=== PATIENT | female | born 1955 | race Caucasian/White ===

== ENCOUNTER 2019-03-05 11:37 | Inpatient (IN) ==
[2019-03-05] MEDS ORDERED: DUONEB (A & A) INH ONE ×2 (12:08→20:28)
--- NOTE | 2019-03-05 12:16 | EKG Report ---
Test Performed on : 03/05/2019 11:57:19 AM Test Reason : sob Blood Pressure : / mmHG Vent. Rate : 067 BPM Atrial Rate : 067 BPM P-R Int : 168 ms QRS Dur : 072 ms QT Int : 436 ms P-R-T Axes : 058 020 020 degrees QTc Int : 460 ms Normal sinus rhythm. Low voltage QRS Cannot rule out Anterior infarct , age undetermined Abnormal ECG When compared with ECG of 09-APR-2011 08:06, No significant change was found Unconfirmed Result
--- NOTE | 2019-03-05 12:37 | Diag Imaging Result Doc PS360 ---
EXAM: CHEST-1 VIEW 03/05/2019 HISTORY: sob TECHNIQUE: AP portable at 1211 COMMENT: There is apparent left pleural effusion. There is slightly worsened opacity in the right lateral costophrenic angle and opacification of the lingula with obscuration of left heart border is present. IMPRESSION: Atelectasis versus pneumonia right lower lobe. Pleural effusion on the left with atelectasis versus pneumonia in the lower lobe and lingula. Electronically signed by Oswald Collado 03/05/2019 12:34 PM
[2019-03-05 12:49] LABS: ALLEN TEST YES; BLOOD TYPE ARTERIAL; HCO3-(ACT) 26.5 mmoll (20.0-26.0); METHB 0.9 % (0.0-1.5); O2(CT) 15.7 mL/dL (15.0-23.0); O2HB 95.7 % (95.0-99.0); PCO2(98.6) 34 mmHg (35-45); PO2(98.6) 81 mmHg (60-100); SAMPLE BLOOD; SAO2 98.8 % (95.0-100.0); THB 11.6 g/dL (11.5-17.4); pH(98.6) 7.48 (7.35-7.45)
[2019-03-05 12:50] LABS: MODALITY CANNULA
[2019-03-05 14:09] LABS: BILIRUBIN URINE NEGATIVE (NEGATIVE); BLOOD URINE NEGATIVE (NEGATIVE); COLOR YELLOW; GLUCOSE URINE NEGATIVE (NEGATIVE); KETONE URINE NEGATIVE (NEGATIVE); LEUKOCYTES URINE TRACE (NEGATIVE); NITRITE URINE NEGATIVE (NEGATIVE); PROTEIN URINE TRACE mg/dL (NEGATIVE); SP GRAVITY URINE 1.024; TURBIDITY URINE CLEAR (CLEAR); URINE SOURCE CLEAN CATCH; UROBILINOGEN URINE NORMAL (NORMAL)
[2019-03-05 14:23] LABS: UR EPITHELIAL CELLS <10 /HPF (<10); URINE BACTERIA NEGATIVE /HPF; URINE RBC <10 /HPF (<10); URINE WBC <10 /HPF (<10)
[2019-03-05 14:32] LABS: URINE CASTS NONE SEEN; URINE CRYSTALS NONE SEEN; URINE SMALL ROUND CELLS TRANS PRESENT; URINE YEAST NONE SEEN
[2019-03-05 15:01] LABS: INR 1.13; PROTIME 14.7 Seconds (11.0-16.0)
[2019-03-05 15:02] LABS: PTT 31.7 Seconds (22.3-41.8)
[2019-03-05 15:14] LABS: BASO# 0.05 X1000 (0.0-0.2); BASO% 0.2 % (0.0-0.8); EOS% 0.8 % (0.0-10.0); HEMATOCRIT 34.3 % (37.0-47.0); HEMOGLOBIN 11.3 g/dL (12.0-16.0); LYMPH% 9.8 % (20.5-51.1); MCH 32.2 PG (27-31); MCHC 32.9 g/dL (33-37); MCV 97.7 FL (81-99); MONO# 1.82 X1000 (0.11-0.59); MONO% 7.4 % (1.7-9.3); MPV 9.8 FL (7.4-10.4); NEUT# 20.09 X1000 (1.4-6.5); NEUT% 81.8 % (42.2-75.2); PLT 122 X1000 (130-400); RBC 3.51 XMIL (4.2-5.4); WBC 24.56 X1000 (4.8-10.8)
[2019-03-05 15:22] LABS: AGAP 15; ALB/GLOB RATIO 1.4; ALBUMIN 3.6 g/dL (3.5-5.0); ALKALINE PHOSPHATASE 183 U/L (32-104); BUN 10 mg/dL (8-22); CALCIUM 8.7 mg/dL (8.8-10.2); CHLORIDE 104 mmol/L (98-107); COSMO 285; CREATININE 0.5 mg/dL (0.5-0.9); ESTIMATED GFR > 60; GLUCOSE 111 mg/dL (70-104); GOT 16 U/L (10-30); GPT 10 U/L (10-36); POTASSIUM 3.1 mmol/L (3.5-5.1); SODIUM 143 mmol/L (136-145); TCO2 24 mmol/L (25-35); TOTAL BILIRUBIN 0.49 mg/dL (0.20-1.00); TOTAL PROTEIN 6.2 g/dL (6.3-8.3)
[2019-03-05 16:01] LABS: ANISOCYTOSIS OCCASIONAL; BANDS 3 % (0-1); LARGE PLATELETS OCCASIONAL; LYMPHS 10 % (21-51); MONO 4 % (1-9); SEGS 82 % (42-75)
[2019-03-05] MEDS ORDERED: NS 1,000 ML IV ONE (16:22)
[2019-03-05] MEDS ORDERED: LEVAQUIN 500 MG/D5W 500 MG/100 ML IVPB IV SCH (16:30)
--- NOTE | 2019-03-05 17:55 | Diag Imaging Result Doc PS360 ---
EXAM: CT ANGIOGRAM PULMONARY ARTERIES - 03/05/2019 HISTORY: elevated d-dimer TECHNIQUE: CT angiogram pulmonary arteries with intravenous contrast. Axial, coronal, and 3-D MIP images are obtained. COMPARISON: None. FINDINGS: There are no filling defects identified in the pulmonary arteries. There is no indication of aortic dissection. There are bilateral interstitial infiltrates or edema. There is atelectasis/consolidation at the left base. There are small bilateral pleural effusions. There is a 1.1 cm noncalcified nodular density adjacent to the right major fissure. There is mediastinal adenopathy. There is mild bilateral hilar adenopathy. There is a mildly prominent right axillary lymph nodes. IMPRESSION: No evidence of pulmonary edema. Bilateral interstitial infiltrates or edema. Left basilar atelectasis and/or consolidation/pneumonia. Small bilateral pleural effusions. 1.1 cm noncalcified nodular density adjacent to right minor fissure. Mediastinal adenopathy. Mild bilateral hilar adenopathy. Malignant adenopathy is not excluded. Electronically signed by Oj Adkins 03/05/2019 5:53 PM
--- NOTE | 2019-03-05 18:40 | PROVIDER DOCUMENTATION ---
This chart was entered by Tahira Bhatt Scribe, acting as scribe for Addy Candelario MD. HPI-Respiratory General - General Chief Complaint: Shortness of Breath Stated Complaint: SOB Time Seen by Provider: 03/05/19 11:59 Source: patient (m) Allergies/Adverse Reactions: Patient Allergies Allergy/AdvReac Type Severity Reaction Status Date / Time Penicillins Allergy ANAPHYLAXIS Verified 10/31/17 15:21 Home Medications: Home Medication List Medication Instructions Recorded Confirmed Last Taken Type Allopurinol [Zyloprim] 300 mg PO DAILY 10/31/17 03/05/19 03/04/19 08:00 History Amitriptyline HCl 10 mg PO DAILY 10/31/17 03/05/19 10/31/17 08:00 History Citalopram [Celexa] 20 mg PO HS 10/31/17 03/05/19 10/30/17 20:00 History Furosemide 80 mg PO DAILY 10/31/17 03/05/19 10/31/17 08:00 History Oxycodone HCl [Oxycontin] 10 mg PO DAILY 10/31/17 03/05/19 10/31/17 08:00 History Pravastatin Sodium 40 mg PO HS 10/31/17 03/05/19 10/30/17 21:00 History Tizanidine HCl 4 mg PO DAILY 10/31/17 03/05/19 10/31/17 08:00 History - History of Present Illness-Resp Nature of Presenting Problem: 63 yowf presents to the ed with sob that has been intermittent, worse at night for 6 days. pt sts went to [facility] this am and was telling them of SOB and was sent to ed. pt on exam had O2 sat of 88% on RA and was placed on NC at 2LPM and O2 sat is 98%. Quality of Pain: reports: none Severity in ED: reports: mild Onset/Duration: reports: 6 days ago Timing: reports: still present, intermittent Exposure: reports: unknown cause Cough Quality/Degree: reports: mild Episode Frequency: occasional episodes Current Respiratory Medication Therapy: Initiated see nurses note Modifying Factors: improves with: oxygen, sitting upright. worse with: exertion, lying down Associated Symptoms: reports: cough, shortness of breath. denies: chest pain/soreness, dizziness, sweaty Similar Symptoms Previously?: Yes Recently seen or treated by another doctor?: Yes (SHER moreno) Review of Systems - Adult - REVIEW OF SYSTEMS - ADULT Constitutional: denies: chills, fever Eyes: reports: no symptoms reported Ears, Nose, Mouth & Throat: reports: no symptoms reported Cardiovascular: reports: see HPI, orthopnea. denies: chest pain, palpitations Respiratory: reports: see HPI, dyspnea on exertion, shortness of breath. denies: cough, wheezing Gastrointestinal: denies: abdominal pain, diarrhea, nausea, vomiting Genitourinary: reports: no symptoms reported Musculoskeletal: reports: no symptoms reported Integumentary: reports: no symptoms reported Neurological: denies: dizziness/vertigo, headache/migraines Psychiatric: reports: no symptoms reported Endocrine: reports: no symptoms reported Hematologic/Lymphatic: reports: no symptoms reported Allergic/Immunologic: reports: no symptoms reported All Other Systems: Reviewed and Negative Past History - Adult - PAST MEDICAL HISTORY-ADULT Review of Records: reports: Old Records Reviewed, Nursing Assessment Review, Medications Reviewed, Social history reviewed & non-contributory. Major Childhood Illnesses: reports: denies history Cardiovascular: reports: denies history Respiratory: reports: sleep apnea Gastrointestinal: reports: cancer (colon), GERD Obstetrical/Gynecological: reports: denies history Genitourinary: reports: denies history Musculoskeletal: reports: denies history Neurological: reports: denies history Psychiatric: reports: depression Endocrine/Immune: reports: Diabetes, thyroid disorder Diabetes Type: Type 2 Other Conditions: reports: other (gout) Additional History: gout - PRIOR SURGERIES/PROCEDURES Surgical/Procedure History: reports: cholecystectomy, hysterectomy, other (cervical, thyroid) - IMMUNIZATION STATUS Childhood Immunizations: See Nurse Assessment Flu Vaccine: See Nurse Assessment - FAMILY HISTORY Family History: reviewed, not pertinent - SOCIAL HISTORY Smoking: denies Substance Use: denies Living Situation: alone Physical Exam-General - PHYSICAL EXAM-ADULT Initial Vital Signs Reviewed: Yes - CONSTITUTIONAL General Appearance: appears well, alert, no apparent distress, obese - EYES Eyes: PERRL/EOMI, pink conjunctivae - HEAD, EARS, NOSE, MOUTH & THROAT HENMT: moist mucous membranes, normal ENT inspection - NECK Neck: non-tender, full range of motion, supple, normal inspection - RESPIRATORY Respiratory: chest non-tender, lungs clear, normal breath sounds, no pleuratic chest pain, respiratory distress (mild 88% on RA placed on NC at @LPM now at 97%) - CARDIOVASCULAR Cardiovascular: normal peripheral pulses, regular rate, rhythm - CHEST (BREASTS) Chest/Breast: deferred - GASTROINTESTINAL (ABDOMEN) Abdominal Exam: normal bowel sounds, non tender, soft - GENITOURINARY Female Genitalia/Pelvic Exam: deferred Rectal Exam: deferred Hemoccult Exam: deferred - LYMPHATIC Lymphatic: no adenopathy - MUSCULOSKELETAL Back Exam: normal inspection, no CVA tenderness, no vertebral tenderness Extremity: normal range of motion, non-tender, no calf tenderness, normal capillary refill, swelling (mild BLE edema) - SKIN Integumentary: normal color, normal turgor, warm/dry - NEUROLOGIC Neurologic: grossly normal, no motor/sensory deficits - PSYCHIATRIC Psych/Mental Status: normal mood/affect, normal thought content, normal thought process, oriented x 3 - HEART Score HEART Score: History: Slightly Suspicious HEART Score: ECG: Non-Specific Repolarization Disturbance/LBBB/PM HEART Score: Age: 45-65 Years HEART Score: Risk Factors for Atherosclerotic Disease: 1 or 2 Risk Factors HEART Score: Troponin: < or = Normal Limit Total HEART Score:: 3 Progress - PLAN OF CARE/RESULTS Progress/Plan/Lab Results: Vital Signs - 8 hr 03/05/19 11:48 03/05/19 11:57 03/05/19 11:58 Temperature 97.8 F Pulse Rate 66 70 69 Respiratory Rate 16 25 H 19 Blood Pressure 159/74 159/84 O2 Sat by Pulse Oximetry 95 96 94 L 03/05/19 12:00 03/05/19 12:49 03/05/19 13:00 Temperature Pulse Rate 67 66 75 Respiratory Rate 10 L 16 19 Blood Pressure O2 Sat by Pulse Oximetry 92 L 95 03/05/19 14:38 03/05/19 14:45 03/05/19 15:00 Temperature Pulse Rate 72 72 Respiratory Rate Blood Pressure 159/75 O2 Sat by Pulse Oximetry 91 L 91 L 91 L 03/05/19 15:01 03/05/19 16:00 Temperature Pulse Rate 70 Respiratory Rate 22 Blood Pressure 171/81 O2 Sat by Pulse Oximetry 90 L Laboratory Results - last 24 hr 03/05/19 03/05/19 03/05/19 12:40 14:01 14:29 WBC 24.56 H RBC 3.51 L Hgb 11.3 L Hct 34.3 L MCV 97.7 MCH 32.2 H MCHC 32.9 L RDW Std Deviation 14.0 Plt Count 122 L MPV 9.8 Neut % (Auto) 81.8 H Lymph % (Auto) 9.8 L [place] % (Auto) 7.4 Eos % (Auto) 0.8 Baso % (Auto) 0.2 Neut # (Auto) 20.09 H Lymph # (Auto) 2.40 [place] # (Auto) 1.82 H Eos # (Auto) 0.20 Baso # (Auto) 0.05 Segmented Neutrophils 82 H Band Neutrophils 3 H Lymphocytes 10 L Monocytes 4 Atypical Lymphocytes 1.0 Large Platelets OCCASIONAL Anisocytosis OCCASIONAL PT INR PTT (Actin FS) D-Dimer, Quantitative Specimen Type ARTERIAL Sample Site R RADIAL pH 7.48 H pCO2 34 L pO2 81 HCO3 26.5 H Base Excess 2.0 Oxyhemoglobin 95.7 ABG O2 Sat (Calculated) 15.7 ABG O2 Saturation 98.8 ABG Carboxyhemoglobin 2.20 ABG Methemoglobin 0.9 Skinny Test YES A-a O2 Difference 76.0 Total Hemoglobin 11.6 Lactate 1.20 Liter Flow 2.0 Blood Gas Modality CANNULA FiO2 % 28.0 Sodium Potassium Chloride Carbon Dioxide Anion Gap BUN Creatinine Estimated GFR/1.73 m2 BUN/Creatinine Ratio Glucose Calculated Osmolality Calcium Total Bilirubin AST ALT Alkaline Phosphatase Creatine Kinase Troponin T Xgy-D-Nswfnxdthgf Pept Total Protein Albumin Globulin Albumin/Globulin Ratio Plasma Lactate Urine Source CLEAN CATCH Urine Color YELLOW Urine Turbidity CLEAR Urine pH 6.0 Ur Specific [place] 1.024 Urine Protein TRACE A Ur Glucose (Stick) NEGATIVE Ur Ketones (Stick) NEGATIVE Urine Blood NEGATIVE Urine Nitrite NEGATIVE Urine Bilirubin NEGATIVE Urobilinogen Dipstick NORMAL Urine Leukocytes TRACE A Urine WBC (Auto) <10 Urine RBC (Auto) <10 U Epithel Cells (Auto) <10 Urine Bacteria (Auto) NEGATIVE Urine Crystals NONE SEEN Small Round Cells TRANS PRESENT Urine Casts NONE SEEN Urine Yeast-like Cells NONE SEEN 03/05/19 03/05/19 03/05/19 14:29 14:29 14:29 WBC RBC Hgb Hct MCV MCH MCHC RDW Std Deviation Plt Count MPV Neut % (Auto) Lymph % (Auto) [place] % (Auto) Eos % (Auto) Baso % (Auto) Neut # (Auto) Lymph # (Auto) [place] # (Auto) Eos # (Auto) Baso # (Auto) Segmented Neutrophils Band Neutrophils Lymphocytes Monocytes Atypical Lymphocytes Large Platelets Anisocytosis PT INR PTT (Actin FS) D-Dimer, Quantitative Specimen Type Sample Site pH pCO2 pO2 HCO3 Base Excess Oxyhemoglobin ABG O2 Sat (Calculated) ABG O2 Saturation ABG Carboxyhemoglobin ABG Methemoglobin Skinny Test A-a O2 Difference Total Hemoglobin Lactate Liter Flow Blood Gas Modality FiO2 % Sodium 143 Potassium 3.1 L Chloride 104 Carbon Dioxide 24 L Anion Gap 15 BUN 10 Creatinine 0.5 Estimated GFR/1.73 m2 > 60 BUN/Creatinine Ratio 20 Glucose 111 H Calculated Osmolality 285 Calcium 8.7 L Total Bilirubin 0.49 AST 16 ALT 10 Alkaline Phosphatase 183 H Creatine Kinase Troponin T < 0.010 Euo-C-Glhbmbkazur Pept 720 H Total Protein 6.2 L Albumin 3.6 Globulin 2.6 Albumin/Globulin Ratio 1.4 Plasma Lactate Urine Source Urine Color Urine Turbidity Urine pH Ur Specific [place] Urine Protein Ur Glucose (Stick) Ur Ketones (Stick) Urine Blood Urine Nitrite Urine Bilirubin Urobilinogen Dipstick Urine Leukocytes Urine WBC (Auto) Urine RBC (Auto) U Epithel Cells (Auto) Urine Bacteria (Auto) Urine Crystals Small Round Cells Urine Casts Urine Yeast-like Cells 03/05/19 03/05/19 03/05/19 14:29 14:29 14:29 WBC RBC Hgb Hct MCV MCH MCHC RDW Std Deviation Plt Count MPV Neut % (Auto) Lymph % (Auto) [place] % (Auto) Eos % (Auto) Baso % (Auto) Neut # (Auto) Lymph # (Auto) [place] # (Auto) Eos # (Auto) Baso # (Auto) Segmented Neutrophils Band Neutrophils Lymphocytes Monocytes Atypical Lymphocytes Large Platelets Anisocytosis PT 14.7 INR 1.13 PTT (Actin FS) 31.7 D-Dimer, Quantitative 2.71 H Specimen Type Sample Site pH pCO2 pO2 HCO3 Base Excess Oxyhemoglobin ABG O2 Sat (Calculated) ABG O2 Saturation ABG Carboxyhemoglobin ABG Methemoglobin Skinny Test A-a O2 Difference Total Hemoglobin Lactate Liter Flow Blood Gas Modality FiO2 % Sodium Potassium Chloride Carbon Dioxide Anion Gap BUN Creatinine Estimated GFR/1.73 m2 BUN/Creatinine Ratio Glucose Calculated Osmolality Calcium Total Bilirubin AST ALT Alkaline Phosphatase Creatine Kinase 30 Troponin T Qdu-X-Rlrwbwgrzce Pept Total Protein Albumin Globulin Albumin/Globulin Ratio Plasma Lactate 1.6 Urine Source Urine Color Urine Turbidity Urine pH Ur Specific [place] Urine Protein Ur Glucose (Stick) Ur Ketones (Stick) Urine Blood Urine Nitrite Urine Bilirubin Urobilinogen Dipstick Urine Leukocytes Urine WBC (Auto) Urine RBC (Auto) U Epithel Cells (Auto) Urine Bacteria (Auto) Urine Crystals Small Round Cells Urine Casts Urine Yeast-like Cells Orders Category Date Time Status Cardiac Monitoring DIRECTED Care 03/05/19 16:18 Active IV Insertion ORDERED Care 03/05/19 16:18 Completed Notify MD of + Sepsis Screen NOW Care 03/05/19 16:18 Active Notify Physician As Ordered Care 03/05/19 16:18 Active Nursing- Obtain EKG ONCE Care 03/05/19 11:59 Active CHEST-1 VIEW [RAD] Stat Exams 03/05/19 11:59 Completed CTA [CT ANGIOGRM PULMONARY ARTERIES] [CT] Stat Exams 03/05/19 15:53 Completed ABG [RESP] Routine Lab 03/05/19 12:40 Completed BLOOD CULTURE [BLDCUL] Stat Lab 03/05/19 14:29 Results BNP [PRO B-NATRIURETIC PEPTIDE] Stat Lab 03/05/19 14:29 Completed CBC WITH ELECTRONIC DIFF [HEME] Stat Lab 03/05/19 14:29 Completed CK PROFILE [SP CHEM] Stat Lab 03/05/19 14:29 Completed COMPREHENSIVE METABOLIC PANEL [CHEM] Stat Lab 03/05/19 14:29 Completed COMPREHENSIVE METABOLIC PANEL [CHEM] Stat Lab 03/05/19 16:20 Ordered D-DIMER [COAG] Stat Lab 03/05/19 14:29 Completed LACTATE, PLASMA [CHEM] Lab 03/05/19 19:30 Uncollected LACTATE, PLASMA [CHEM] Lab 03/05/19 22:30 Uncollected LACTATE, PLASMA [CHEM] Q3H Lab 03/05/19 14:29 Completed PT [PROTIME WITH INR] [COAG] Stat Lab 03/05/19 14:29 Completed PTT [COAG] Stat Lab 03/05/19 14:29 Completed TROPONIN T Stat Lab 03/05/19 14:29 Completed URINALYSIS W/POSS RFLX CULT [URINALYSIS] Stat Lab 03/05/19 14:01 Completed URINE CULTURE [RM] Routine Lab 03/05/19 14:29 Received URINE MANUAL MICROSCOPIC [URINALYSIS] Stat Lab 03/05/19 14:01 Completed 0.9% Sodium Chloride Inj [Ns] 1,000 ml Med 03/05/19 16:22 Discontinued IV 999 mls/hr Albuterol 2.5MG/Ipratrop 0.5MG [Duoneb (A & A)] Med 03/05/19 12:08 Discontinu ed 3 ml INH NOW ONE Levofloxacin 500 mg/D5w [Levaquin 500 mg/D5w] Med 03/05/19 16:30 Active 500 mg in 100 ml IV Q24H Aerosol Treatments Routine Oth 03/05/19 12:08 Completed Aerosol Treatments Stat Oth 03/05/19 12:08 Completed Oxygen Device Stat Oth 03/05/19 16:18 Active EKG [EKG] Stat Ther 03/05/19 11:59 Draft Result Diagrams: 03/05/19 14:29 03/05/19 14:29 - REASSESSMENT Reassessment #1 Time Reassessed: 12:54 Status: improving - EKG 1 Time of EKG reading by physician:: 11:57 EKG Read and Signed by:: Addy Candelario EKG Interpretation (*Must complete 3 of following elements*): Abnormal Rate: 67 Rhythm: nsr [place]: normal QRS: other (low volatge qrs) [place] Interval: normal ST Wave: normal Comments: cannot rule out anterior infarct, age undetermiend - XRAY 1 XRAY: Bilateral XRAY Study: Chest Impression: See EMR Report (EXAM: CHEST-1 VIEW 03/05/2019 HISTORY: sob TECHNIQUE: AP portable at 1211 COMMENT: There is apparent left pleural effusion. There is slightly worsened opacity in the right lateral costophrenic angle and opacification of the lingula with obscuration of left heart border is present. IMPRESSION: Atelectasis versus pneumonia right lower lobe. Pleural effusion on the left with atelectasis versus pneumonia in the lower lobe and lingula. Electronically signed by Oswlad Collado 03/05/2019 12:34 PM 03/05/19 1234 Interpreting Physician: Oswald Collado MD Dictated Date/Time: 03/05/19 4922 cc: Addy Candelario MD; Darek Calix MD) - CONSULTS/PCP/HOSPITALIST Notification #1 *Consult/PCP/Hospitalist*: Dr Viveros Time Discussed: 18:30 Consult Disposition: Will see in ED, Admit Departure - Departure Date of Disposition Decision: 03/05/19 Time of Disposition Decision: 18:55 DIAGNOSIS: Pneumonia, Lung mass, Hypoxia, D-dimer, elevated, Hypokalemia Disposition: ADMITTED INPATIENT 09 Certified Medical Emergency: Emergent Condition: Fair Referrals and Follow-Ups: Darek Calix MD [Primary Care Provider] - - Critical Care Note This patient required my direct & personal management of CC.: No Attestation - Physician/ JUSTYNA Attestation Patient care was provided by Advanced Practice Provider:: No The physician spent face to face time with patient:: Yes Advanced Practice Provider documentation review:: Supervising physician onsite and consulted in the evaluation and care of this patient. The physician did have a face to face encounter with the patient. This chart was documented by the indicated scribe, (Tahira Bhatt Scribe) and accurately reflects the services I performed and decisions made by me, Addy Candelario MD, as attested by the provider's signature.
[2019-03-05] MEDS ORDERED: LASIX IV ONE (20:28)
[2019-03-05] MEDS ORDERED: KLOR-CON PO ONE (20:41)
[2019-03-05] MEDS: HUMALOG SUBQ SCH (21:00)
[2019-03-05 21:26] LABS: AGAP 12; ALB/GLOB RATIO 1.4; ALBUMIN 2.9 g/dL (3.5-5.0); ALKALINE PHOSPHATASE 144 U/L (32-104); BUN 8 mg/dL (8-22); CALCIUM 7.1 mg/dL (8.8-10.2); CHLORIDE 109 mmol/L (98-107); COSMO 290; CREATININE 0.5 mg/dL (0.5-0.9); ESTIMATED GFR > 60; GLUCOSE 248 mg/dL (70-104); GOT 13 U/L (10-30); GPT 8 U/L (10-36); POTASSIUM 2.5 mmol/L (3.5-5.1); SODIUM 142 mmol/L (136-145); TCO2 21 mmol/L (25-35); TOTAL BILIRUBIN 0.36 mg/dL (0.20-1.00)
--- NOTE | 2019-03-05 21:27 | HISTORY AND PHYSICAL ---
REASON FOR ADMISSION: This is a patient of Dr. Cunningham with a 2-week history of shortness of breath. HISTORY OF PRESENT ILLNESS: Ms. Verenice Bernard is a 63-year-old woman with a past medical history of colon cancer stage II, currently undergoing chemotherapy. Last chemo was less than 4 to 5 days ago. Reports that for the last 2 weeks she has been getting dyspnea initially with exertion, but now at rest over the last 3 days. Denies any fever, but having chronic chills for several months. Admits to having some mild lower extremity edema with mild orthopnea over the last 1 week. No chest pain or palpitations or anginal type symptoms. No PND. Finally now, she does complain of platypnea. She cannot go up 2 flights of stairs anymore. Three weeks ago she could do this without any limitations. She denies any close contacts. No GI or complaints. No new focal neurological complaints. No polyuria or polydipsia. REVIEW OF SYSTEMS: Twelve system review was done. Positive findings per HPI. The patient does have occasional urinary and fecal incontinence, but no bleeding in stool or urine. ALLERGIES: Penicillin which causes a rash. She also complains of allergies to gabapentin and Lyrica which causes anaphylaxis. HOME MEDICATIONS: As follows. 1. Amitriptyline 10 mg daily. 2. Celexa 20 mg at bedtime. 3. Lasix 80 mg daily. 4. OxyContin 10 mg daily. 5. Pravastatin 40 mg at bedtime. 6. Tizanidine 4 mg daily. 7. Allopurinol 200 mg daily. SOCIAL HISTORY: Does not smoke, drink, or use drugs. PAST MEDICAL HISTORY: Patient has had a past medical history of restless legs syndrome, sleep apnea type 2 diabetes, gallbladder problems, reflux disease. SURGICAL HISTORY: She has had C-spine surgery, tonsillectomy, breast surgery, hysterectomy, sinus surgery, adenectomy, partial colectomy, septal surgery. LABORATORY WORK: White count 24,000. H H is 11 and 34. Platelets 122,000, 81 percent neutrophils, with 3% bands. Potassium is 3.1, glucose 110, BUN 10, creatinine 0.5, troponins negative. ProBNP 7 and 20. Lactate 1.6. D-dimer 2.[address] angiogram showed no PE but showed pleural effusions and bibasilar infiltrates. Urinalysis is essentially benign. Blood gas on 2 L is 7.48, pCO2 is 34, PO2 is 81. Chest film: Atelectasis versus pneumonia right lower lobe and pleural effusion in the left with possible pneumonia also in the lingula. EXAMINATION: General: Morbidly obese, middle-aged, woman who is in mild respiratory distress. Vital Signs: Blood pressure 165/65, heart rate is 79, temperature is 97.8, respiratory rate is 26, 94% on 2 L. Neurologic: She is alert and oriented to person, place, and time. Normal mood and affect. HEENT: Head is normocephalic, atraumatic. Eyes, XOCHITL, EOMI. Anicteric not pale. ENT and oropharynx exam is grossly normal. Neck: Short and thick. No JVD or carotid bruit. No thyromegaly. Chest: Decreased air entry in both lung roberson. Bibasilar crepitations and scattered rales in the upper lungs. Cardiovascular: First and second heart sounds heard. No gallops, murmurs, rubs. Rhythm is regular. Abdomen: Slightly protuberant, soft, with tenderness confined to the right upper quadrant area, but no peritoneal symptoms. Bowel sounds are normal. Rectal: Deferred at this time. Extremities: Trace lower extremity edema. Distal pulse volumes are full regular symmetrical. No clubbing or peripheral cyanosis. Neurologic: No gross focal deficits. Skin: Intact. No breakdown, lesions. Musculoskeletal: Grossly normal. ASSESSMENT: At this time is: 1. Bilateral pneumonia on chemotherapy. 2. Left pleural effusion, likely parapneumonic pneumonia. 3. Type 2 diabetes. 4. Morbid obesity with sleep apnea. 5. Stage II colon cancer on chemotherapy. 6. Anemia, probably related to underlying chemotherapy. 7. Restless legs syndrome. 8. Hyperlipidemia. PLAN: At this time, the patient will be supported on O2 supplementation, scheduled breathing treatments. Because the patient's immunosuppressants and her being on chemotherapy, I guess we need to be a little more aggressive to treat what can be considered community-acquired pneumonia. Because of the patient being on chemotherapy, I am concerned about the slight increased risk of gram-negative pathogens. I will start her on Levaquin to cover for atypicals and other community- acquired pathogens and high dose Maxipime for gram-negative. We will also await blood cultures. The patient may benefit from modest diuresis. Sliding scale will be instituted for blood sugar control. We will replete and monitor electrolytes closely. Patient's last echo done last month showed normal ejection fraction of 65%. Follow up chest film in 2 days to document improvement. Evaluate patient for home O2 prior to discharge. cc: Gale Cedillo MD
[2019-03-05] MEDS: CELEXA PO SCH (21:34)
[2019-03-05] MEDS: LOVENOX SUBQ SCH (21:34)
[2019-03-05] MEDS: PRAVACHOL PO SCH (21:34)
[2019-03-05] MEDS: MAXIPIME 2 GM in NS 100 ML IV SCH (21:34)
[2019-03-05] MEDS: DUONEB (A & A) INH SCH (21:58)
[2019-03-05] MEDS ORDERED: ATIVAN IV ONE (23:49)
[2019-03-06] MEDS: DUONEB (A & A) INH SCH ×4 (03:15→21:51)
[2019-03-06 05:59] LABS: BASO# 0.06 X1000 (0.0-0.2); BASO% 0.3 % (0.0-0.8); EOS# 0.13 X1000 (0.0-0.7); EOS% 0.6 % (0.0-10.0); HEMATOCRIT 33.1 % (37.0-47.0); HEMOGLOBIN 10.8 g/dL (12.0-16.0); IMM GRAN# 0.81 X1000 (0.0-0.04); IMM GRAN% 3.8 % (0.0-0.5); LYMPH# 2.59 X1000 (1.2-3.4); MCH 31.4 PG (27-31); MCHC 32.6 g/dL (33-37); MCV 96.2 FL (81-99); MONO# 1.28 X1000 (0.11-0.59); MONO% 5.9 % (1.7-9.3); MPV 9.5 FL (7.4-10.4); NEUT# 16.66 X1000 (1.4-6.5); NEUT% 77.4 % (42.2-75.2); PLT 118 X1000 (130-400); RBC 3.44 XMIL (4.2-5.4); RDW 14.3 % (11.5-14.5); WBC 21.53 X1000 (4.8-10.8)
[2019-03-06 06:00] LABS: MAGNESIUM 1.5 mg/dL (1.5-2.7); PHOSPHORUS 3.1 mg/dL (2.7-4.5)
[2019-03-06 06:01] LABS: HEMOGLOBIN A1C 6.4 % (4.8-6.0)
[2019-03-06 06:19] LABS: AGAP 15; BUN 10 mg/dL (8-22); CALCIUM 8.3 mg/dL (8.8-10.2); CHLORIDE 105 mmol/L (98-107); COSMO 285; CREATININE 0.6 mg/dL (0.5-0.9); ESTIMATED GFR > 60; GLUCOSE 145 mg/dL (70-104); POTASSIUM 2.8 mmol/L (3.5-5.1); SODIUM 142 mmol/L (136-145); TCO2 22 mmol/L (25-35)
[2019-03-06 06:20] LABS: TSH 3.4 uIUmL (0.27-4.20)
[2019-03-06] MEDS: HUMALOG SUBQ SCH ×4 (07:00→21:35)
[2019-03-06] MEDS: TYLENOL PO PRN ×2 (08:58→23:53)
[2019-03-06] MEDS: MAXIPIME 2 GM in NS 100 ML IV SCH ×2 (10:30→21:35)
[2019-03-06] MEDS: OXYCONTIN PO SCH (10:48)
[2019-03-06] MEDS: LEVAQUIN 750 MG/D5W 750 MG/150 ML IVPB IV SCH (16:54)
--- NOTE | 2019-03-06 18:01 | PROGRESS NOTE ---
DATE: 03/06/2019 SUBJECTIVE: Ms. Cardenas came in yesterday. She had been feeling bad for about 2 weeks with increase in shortness of breath. She sees Dr. Darek Calix. This is a 63-year-old with a past medical history of colon cancer stage II, currently undergoing chemotherapy. Last chemotherapy was 4-5 days ago. Reports that for 2 weeks she has been getting more dyspnea initially on exertion and now with rest for the last 3 days. She denies fever but she was having what she thinks is chills for the last couple months off and on. Some mild lower extremity edema. Some mild orthopnea over the last week. No chest pain or palpitations or angina type symptoms. So she was admitted with bilateral pneumonia in the face of chemotherapy, left pleural effusion, likely parapneumonic pneumonia. She has underlying diabetes mellitus type 2, morbid obesity with sleep apnea, stage II colon cancer, restless legs syndrome. OBJECTIVE: General: Today she feels better. She feels like her appetite is good. Has not eaten anything yet but wants to eat supper. Vital signs: Temperature 98.9 degrees, pulse 89, respirations 18, blood pressure 156/66. Weight 212 pounds. HEENT: Pupils are equal and round. Lungs: Clear in all lung roberson anterolateral. Cardiovascular: Regular rhythm and rate without murmur or S3. Abdomen: Soft. Blood sugars 130, 163. DIAGNOSTIC STUDIES: Pulmonary arteriogram: No evidence of pulmonary edema. Mild bilateral hilar adenopathy, malignant adenopathy is not excluded. A 1.1 cm noncalcified nodular density seen in the right minor fissure. Bilateral interstitial infiltrates. Left basilar atelectasis. ASSESSMENT AND PLAN: 1. Plan to continue present antibiotics. She is on cefepime 2 g IV q.12. I think that is her only antibiotic right now. 2. She is getting high-dose allopurinol. I assume that is for her chemotherapy for tumor lysis syndrome. 3. Undergoing chemotherapy, I believe that is for colon cancer. I do see where she is on Levaquin as well. So she is on 2 antibiotics, Levaquin and cefepime. 4. Review of her lab. Unremarkable. Hemoglobin A1c was 6.4. Her potassium was 2.5 on presentation and they supplemented this. cc: Skinny Dumont MD
[2019-03-06] MEDS: PRAVACHOL PO SCH (21:34)
[2019-03-06] MEDS: NOVOLOG MIX 70/30 SUBQ SCH (21:34)
[2019-03-06] MEDS: KLOR-CON PO SCH (21:34)
[2019-03-06] MEDS: LOVENOX SUBQ SCH (21:34)
[2019-03-06] MEDS: CELEXA PO SCH (21:34)
[2019-03-07] MEDS: DUONEB (A & A) INH SCH ×4 (03:32→22:06)
[2019-03-07] MEDS: HUMALOG SUBQ SCH ×4 (06:08→22:32)
[2019-03-07] MEDS: ZYLOPRIM PO SCH (08:16)
[2019-03-07] MEDS: MAXIPIME 2 GM in NS 100 ML IV SCH ×2 (08:16→20:10)
[2019-03-07] MEDS: OXYCONTIN PO SCH (08:17)
[2019-03-07] MEDS: LASIX PO SCH (08:17)
[2019-03-07] MEDS: KLOR-CON PO SCH ×2 (08:17→20:11)
[2019-03-07] MEDS: ZANAFLEX PO SCH (08:17)
[2019-03-07] MEDS: NOVOLOG MIX 70/30 SUBQ SCH ×2 (08:24→22:32)
--- NOTE | 2019-03-07 10:29 | Diag Imaging Result Doc PS360 ---
EXAM: CHEST-2 VIEWS - 03/07/2019 HISTORY: PNA TECHNIQUE: Chest two views COMPARISON: 03/05/2019 one view chest FINDINGS: There is a small to medium left pleural effusion which is decreased mildly. There is a small right pleural effusion. There is decreased atelectasis at the right base. There is stable mild prominence of vascular/interstitial markings. There is no pneumothorax identified. Heart size is stable. Central venous catheter remains in place. IMPRESSION: Mild decrease in left pleural effusion. Decreased atelectasis at right base. Stable mild vascular/interstitial marking prominence. Electronically signed by Oj Adkins 03/07/2019 10:25 AM
--- NOTE | 2019-03-07 13:22 | PROGRESS NOTE ---
DATE: 03/07/2019 SUBJECTIVE: Ms. Cardenas said she definitely feels better. Breathing is better, stronger. OBJECTIVE: T-max is 99.8, pulse 70, respirations 17, blood pressure 151/72. Pupils are equal and round. Lungs are clear in all lung roberson. Cardiovascular exam: Regular rhythm and rate without murmur or S3. DIAGNOSTIC STUDIES: Her chest x-ray from this morning showed mild decrease in left pleural effusion, decreased atelectasis in the right base. Stable mild vascular and interstitial markings. Lab: White count is elevated at 21,530, hematocrit 33, platelet count 118,000. Chemistry: Blood sugars 163, 138, 119, 123, so they look well controlled. She came in yesterday. Sodium 142, potassium 2.8, chloride 105, BUN 10, creatinine 0.6. We supplemented her some potassium and need to recheck her potassium. ASSESSMENT AND PLAN: 1. She is on cefepime 2 g IV every 12 hours. She had a pulmonary arteriogram. No evidence of pulmonary edema. Mild bilateral hilar adenopathy. Malignant adenopathy could not be excluded. She has a 1.1 cm non calcified nodular density seen in the right minor fissure, bilateral interstitial infiltrates. 2. Continue her high-dose allopurinol, chemotherapy. 3. She is undergoing chemotherapy. She has colon cancer stage 2. 4. Review of her orders: She is getting Levaquin 750 mg daily, cefepime 2 g every 12 hours, oxycodone ER 10 mg p.o. daily, Pravachol 40 mg a day, Zanaflex 4 mg daily. Breathing treatments, albuterol and ipratropium. Allopurinol 300 mg a day. Celexa 20 mg a day. Low dose Lovenox at 40 mg subcutaneous daily. She got Lasix 80 mg. She gets that p.o. daily. She is on NovoLog 70/30 15 units in the evening and 25 units in the morning. Going to recheck and see about her potassium. I am going to put her on some potassium daily p.o. Will check her magnesium and potassium again. Check another chest x-ray in the morning. cc: Skinny Dumont MD
[2019-03-07 14:04] LABS: AGAP 12; BUN 9 mg/dL (8-22); CALCIUM 8.9 mg/dL (8.8-10.2); CHLORIDE 105 mmol/L (98-107); COSMO 288; CREATININE 0.7 mg/dL (0.5-0.9); ESTIMATED GFR > 60; GLUCOSE 152 mg/dL (70-104); POTASSIUM 4.2 mmol/L (3.5-5.1); SODIUM 144 mmol/L (136-145); TCO2 27 mmol/L (25-35)
[2019-03-07] MEDS: LEVAQUIN 750 MG/D5W 750 MG/150 ML IVPB IV SCH (15:23)
[2019-03-07] MEDS: CELEXA PO SCH (20:11)
[2019-03-07] MEDS: PRAVACHOL PO SCH (20:11)
[2019-03-07] MEDS: LOVENOX SUBQ SCH (20:11)
[2019-03-08] MEDS: TYLENOL PO PRN ×2 (01:51→15:35)
[2019-03-08] MEDS: DUONEB (A & A) INH SCH ×2 (03:39→11:07)
[2019-03-08] MEDS: HUMALOG SUBQ SCH ×2 (06:18→10:55)
[2019-03-08 06:33] LABS: AGAP 13; BUN 9 mg/dL (8-22); CALCIUM 8.5 mg/dL (8.8-10.2); CHLORIDE 100 mmol/L (98-107); COSMO 273; CREATININE 0.7 mg/dL (0.5-0.9); ESTIMATED GFR > 60; GLUCOSE 105 mg/dL (70-104); MAGNESIUM 1.5 mg/dL (1.5-2.7); POTASSIUM 3.5 mmol/L (3.5-5.1); SODIUM 137 mmol/L (136-145); TCO2 24 mmol/L (25-35)
[2019-03-08 06:40] LABS: BASO# 0.03 X1000 (0.0-0.2); BASO% 0.1 % (0.0-0.8); EOS# 0.38 X1000 (0.0-0.7); EOS% 1.5 % (0.0-10.0); HEMOGLOBIN 11.8 g/dL (12.0-16.0); IMM GRAN% 1.2 % (0.0-0.5); MCH 31.7 PG (27-31); MCHC 32.8 g/dL (33-37); MCV 96.8 FL (81-99); MONO% 4.1 % (1.7-9.3); MPV 9.8 FL (7.4-10.4); NEUT# 20.18 X1000 (1.4-6.5); NEUT% 82.1 % (42.2-75.2); PLT 120 X1000 (130-400); RBC 3.72 XMIL (4.2-5.4); RDW 14.9 % (11.5-14.5); WBC 24.59 X1000 (4.8-10.8)
[2019-03-08 08:08] LABS: BANDS 1 % (0-1); LYMPHS 9 % (21-51); MONO 4 % (1-9); NRBC 5 % (0-0); SEGS 86 % (42-75)
[2019-03-08] MEDS: LASIX PO SCH (08:32)
[2019-03-08] MEDS: ZANAFLEX PO SCH (08:32)
[2019-03-08] MEDS: MAXIPIME 2 GM in NS 100 ML IV SCH (08:32)
[2019-03-08] MEDS: KLOR-CON PO SCH (08:32)
[2019-03-08] MEDS: ZYLOPRIM PO SCH (08:32)
[2019-03-08] MEDS: OXYCONTIN PO SCH (08:32)
[2019-03-08] MEDS: NOVOLOG MIX 70/30 SUBQ SCH (08:33)
--- NOTE | 2019-03-08 09:31 | Diag Imaging Result Doc PS360 ---
EXAM: CHEST-PORTABLE 03/08/2019 HISTORY: pneumonia TECHNIQUE: AP portable upright at 0902 COMMENT: There is cardiomegaly. There is increased pulmonary vascularity. There is a left pleural effusion which is slightly smaller than on 03/07/2019. There is hazy opacity over the right base and atelectasis versus pneumonia is present in the left lower lobe. IMPRESSION: Left pleural effusion. Left lower lobe atelectasis versus pneumonia. Questionable pulmonary edema. Electronically signed by Oswald Collado 03/08/2019 9:29 AM
[2019-03-08 11:17] VITALS: BP 129/65
--- NOTE | 2019-03-08 12:57 | DISCHARGE SUMMARY ---
ADMISSION DATE: 03/05/2019 DISCHARGE DATE: 03/08/2019 PHYSICIAN: Darek Calix MD. HISTORY: This is a 63-year-old who has a past medical history of colon cancer, stage 2 currently undergoing chemotherapy. Last chemo was 4 or 5 days ago before admission. She said the last 2 weeks she has been getting dyspnea especially with exertion, but noticed a little bit of dyspnea at rest for the last 3 days. Denies any fever or chronic chills recently, but she has noted some chills over the last couple of months. Admits to having lower extremity edema, mild orthopnea, and over the last week she had no chest pain. No palpitations. No anginal-type since symptoms. She does complain of some paresthesias in her legs. She cannot go up 2 flights of stairs. Three weeks ago she could do just about anything without limitations. Denies any close infectious contacts or GI and complaints. CURRENT MEDICATIONS: 1. Amitriptyline 10 mg a day. 2. Celexa 20 mg at bedtime. 3. Lasix 80 mg a day. 4. OxyContin 10 mg a day. 5. Pravastatin 40 mg at bedtime. 6. Tizanidine 4 mg a day. 7. Allopurinol 200 mg a day. ADMISSION DIAGNOSES: 1. Bilateral pneumonia versus atelectasis. She is on chemotherapy. 2. Left pleural effusion, likely parapneumonic pneumonia. 3. Diabetes mellitus type 2. 4. Morbid obesity and sleep apnea. 5. Stage II colon cancer on chemotherapy. 6. Anemia related underlying chemotherapy. 7. Restless legs syndrome. 8. Hyperlipidemia. HISTORY: We will put her on O2 supplementation. Because of immunosuppression, we treated her with broad-spectrum antibiotic and some bronchodilator. She showed steady increase. Chest x-ray on 03/07 with mild decreased left pleural effusion, decreased atelectasis in the right base. Stable mild vascular interstitial prominence. She was stronger and able to ambulate and get around. She had some left lower lobe atelectasis, but clinically continued to improve. Her blood cultures did not grow anything. Urine culture was negative as well. She felt better and wanted to go home, and felt we could let her go home on 03/08/2019. DISCHARGE MEDICATIONS: She will take her home medications allopurinol 300 mg a day, amitriptyline 10 mg a day, Celexa 20 mg a day, and Lasix 80 mg daily. She takes NovoLog 70/30 25 units in the morning and 15 units in the evening, OxyContin 10 mg b.i.d., pravastatin 40 mg at bedtime, tizanidine 4 mg daily. I will give her Levaquin 500 mg p.o. daily for another 7 days. Follow up with follow up with Oncology. Follow up with Dr. Darek Calix. She had a pulmonary arteriogram note on 03/05, and there was bilateral interstitial infiltrates and edema, left basilar atelectasis and questionable consolidation. Suspect pneumonia and bilateral pleural effusions. These have improved. Recommend a followup chest x-ray in 2 weeks. cc: Skinny Dumont MD
[2019-03-08] MEDS ORDERED: PNEUMOVAX 23 IM ONE (15:17)
== END 2019-03-08 16:07 | disposition home or self-care (01) | DRG 194 ==
LOC: ED 11:37 → EDIPHOLD 20:57 → SUATTDRO 20:57 → 2N 03-06 16:33
PROVIDERS: ATTEND Emergency Medicine